=== PATIENT | male | born 1950 | race Caucasian/White ===

== ENCOUNTER 2023-12-13 09:10 | Emergency (ER) | payer BC, MEDICARE ==
[~2023-12-13] VITALS: Ht 188 cm; Wt 102.1 kg
[2023-12-13] MEDS ORDERED: OLME1TAB90 PO (09:36)
[2023-12-13] MEDS ORDERED: CLOP75TA15 PO (09:36)
[2023-12-13] MEDS ORDERED: AMLO-212 PO (09:36)
[2023-12-13] MEDS ORDERED: SULFAMETHOXAZOL PO (09:36)
[2023-12-13] MEDS ORDERED: METO-356 PO (09:36)
[2023-12-13] MEDS ORDERED: HYDROCODONE/APAP 5-325MG TABLET ONE (10:02)
[2023-12-13] MEDS: HYDROCODONE/APAP 5-325MG TABLET PO ONE (10:05)
[2023-12-13 10:27] LABS: *BILIRUBIN,URIN NEGATIVE (NEGATIVE); *CLARITY,URINE CLEAR (CLEAR); *COLOR,URINE YELLOW (YELLOW); *KETONES,URINE NEGATIVE (NEGATIVE); *PROTEIN,URINE NEGATIVE (NEGATIVE); *UROBILINOGEN,URINE 0.2 E.U./dl (NORMAL); LEUKOCYTE ESTERASE ,URINE 2+ (NEGATIVE); NITRITE, URINE POSITIVE (NEGATIVE); PH,URINE 6.5 (5.0-8.0); UGLUCOSE NEGATIVE (NEGATIVE)
[2023-12-13 10:28] LABS: *BLOOD, URINE TRACE (NEGATIVE)
[2023-12-13 10:38] LABS: BACTERIA,URINE MODERATE /HPF (NONE SEEN); SQUAMOUS EPITHELIAL CELL,UR FEW /HPF (NONE SEEN); WBC,URINE 50-80 /HPF (0-3)
[2023-12-13] MEDS ORDERED: HYDR-3972 PO (11:16)
[2023-12-13] MEDS ORDERED: [UNRECOGNIZED DRUG - CODE] PO (11:16)
[2023-12-13 11:25] VITALS: BP 132/56; O2SAT 96
[2023-12-13] MEDS ORDERED: DOXY100C5 PO (11:31)
== END 2023-12-13 11:55 | disposition home or self-care (01) ==
LOC: ER 09:12
DX: M54.50 Low back pain, unspecified (principal); N39.0 Urinary tract infection, site not specified; Z86.73 Personal history of transient ischemic attack (TIA), and cerebral infarction without residual deficits; Z98.890 Other specified postprocedural states; Z79.891 Long term (current) use of opiate analgesic; Z79.899 Other long term (current) drug therapy
CPT/HCPCS: 93005; A4606; A4663